=== PATIENT | male | born 1945 | race Caucasian/White ===

== ENCOUNTER → 2023-11-13 | Outpatient (CLI) | payer MEDICARE ==
--- NOTE | 2023-11-13 08:04 | US ---
EXAMINATION TYPE: US gallbladder DATE OF EXAM: 11/13/2023 COMPARISON: NONE CLINICAL INDICATION: Male, 78 years old with history of R10.11 RIGHT UPPER QUADRANT PAIN; Pt states e pisode of RUQ pain TECHNIQUE: Multiple sonographic images of the right upper quadrant are obtained. FINDINGS: EXAM MEASUREMENTS: Liver Length: 15.3 cm Gallbladder Wall: 0.2 cm CBD: 0.4 cm Right Kidney: 10.4 x 4.7 x 4.9 cm Pancreas: Obscured by bowel gas Liver: Heterogeneous with two calcifications within left lobe Gallbladder: wnl Evidence for sonographic Archer's sign: No CBD: wnl Right Kidney: wnl IMPRESSION: 1. No evidence for acute process. 2. Hepatic calcifications.
== END | disposition home or self-care (01) ==
LOC: RADUSWWP 07:36
PROVIDERS: ATTEND Family Medicine
DX: K76.89 Other specified diseases of liver (principal)
CPT/HCPCS: 76705